=== PATIENT | male | born 1990 | race Two or more races ===

== ENCOUNTER 2017-06-09 19:05 | Emergency (ER) | payer SELFPAY ==
[2017-06-09 19:13] VITALS: BP 156/104; PULSE 82; TEMP 98.1; BMI 26.9
[2017-06-09] MEDS ORDERED: ACETAMINOPHEN 325 MG TABLET (FP) PO ONE (21:30)
--- NOTE | 2017-06-09 21:39 | PDOC ---
History of Present Illness - General History Source: Patient Exam Limitations: No Limitations - History of Present Illness Initial Comments: 06/09/17 21:41 The patient is a 26 year old male with no past medical history, presents to the emergency department with complaint of bump to the bottom of his left foot for 2 -3 months. Patient is unsure if he injured it or stepped on something. The bump is painful and has been increasing in pain over time. Patient has to ambulate on the other side of his foot to avoid pressure and pain. Denies pain or weakness radiating up the leg. Denies fever, chills. Patient reports polydipsia , polyuria. Denies change in temperature tolerance. Patient's mother has a history of Diabetes. <Andres Ann - Last Filed: 06/09/17 21:40> <Dipika Cain - Last Filed: 06/09/17 22:08> - General Chief Complaint: Injury Stated Complaint: BUMP ON LT FOOT Time Seen by Provider: 06/09/17 19:52 Past History <Andres Ann - Last Filed: 06/09/17 21:40> - Past Medical History COPD: No Other medical history: denies - Immunization History Immunization Up to Date: Yes - Suicide/Smoking/Psychosocial Hx Smoking History: Current every day smoker Number of Cigarettes Smoked Daily: 10 Information on smoking cessation initiated: No Hx Alcohol Use: No Drug/Substance Use Hx: No <Dipika Cain - Last Filed: 06/09/17 22:08> - Past Medical History Allergies/Adverse Reactions: Allergies Allergy/AdvReac Type Severity Reaction Status Date / Time No Known Allergies Allergy Verified 06/09/17 19:09 Home Medications: Ambulatory Orders Ibuprofen 800 mg PO TID #30 tablet 06/09/17 Review of Systems - Review of Systems Able to Perform ROS?: Yes Comments:: 06/09/17 21:41 CONSTITUTIONAL: Absent: fever, no chills, no fatigue EYES: Absent: visual changes ENT: Absent: ear pain, no sore throat CARDIOVASCULAR: Absent: chest pain, no palpitations RESPIRATORY: Absent: cough, no SOB GI: Absent: abdominal pain, no nausea, no vomiting, no constipation, no diarrhea GENITOURINARY: Absent: dysuria, no frequency, no hematuria MUSKULOSKELETAL: Absent: back pain, no arthralgia, no myalgia SKIN: Absent: rash NEURO: Absent: headache Is the patient limited Polish proficient: No <Andrse Ann - Last Filed: 06/09/17 21:40> *Physical Exam - Vital Signs Last Vital Signs Temp Pulse Resp BP Pulse Ox 98.1 F 82 18 156/104 99 06/09/17 19:09 06/09/17 19:09 06/09/17 19:09 06/09/17 19:09 06/09/17 19:09 - Physical Exam Comments: 06/09/17 21:41 GENERAL: Well-appearing, well-nourished. No apparent distress. HEENT: Normocephalic, atraumatic. PERRL, EOM intact. CARDIOVASCULAR: Normal S1, S2. Regular rate and rhythm. PULMONARY: Clear to auscultation bilaterally. ABDOMEN: Soft, non-distended, non-tender. EXTREMITIES: Left foot shows normal ROM. There is a healed ulcer in the plantar region of his left foot. Normal ROM in all other extremities. No gross deformities. SKIN: Warm, dry. No rash NEUROLOGICAL: No focal neurological deficits. <Andres Ann - Last Filed: 06/09/17 21:40> - Vital Signs Last Vital Signs Temp Pulse Resp BP Pulse Ox 98.1 F 82 18 156/104 99 06/09/17 19:09 06/09/17 19:09 06/09/17 19:09 06/09/17 19:09 06/09/17 19:09 <Dipika Cain - Last Filed: 06/09/17 22:08> ED Treatment Course - RADIOLOGY Radiology Studies Ordered: Category Date Time Status FOOT-LEFT [RAD] Stat Radiology 06/09/17 21:29 Ordered <Dipika Cain - Last Filed: 06/09/17 22:08> *DC/Admit/Observation/Transfer - Attestations Scribe Attestion: 06/09/17 21:41 Documentation prepared by Andres Ann, acting as infertility medical assistant for JEWELL Jackson <Andres Ann - Last Filed: 06/09/17 21:40> - Discharge Dispostion Admit: No <Dipika Cain - Last Filed: 06/09/17 22:08> Diagnosis at time of Disposition: Flat foot Qualifiers: Laterality: unspecified laterality Qualified Code(s): M21.40 - Flat foot [pes planus] (acquired), unspecified foot - Discharge Dispostion Disposition: HOME Condition at time of disposition: Stable - Referrals Referrals: Mitchell Ledezma MD [Staff Physician] - - Patient Instructions Printed Discharge Instructions: DI for Flat Feet Additional Instructions: You have a flat foot. The pain appears to be from old trauma to the arch of the foot. There are no broken bones or foreign bodies seen on exam. Please take ibuprofen 800mg three time a day to help with pain. Wear shoes with good arch support. Keep your foot elevated when resting. Please follow up with podietry ( Dr. Mcdowell) this week for further evaluation. Return to the ED if the pain gets worse, if you develop fevers, chills, signs of infection including redness or pus drainage from the site or have any changes in your symptoms. - Post Discharge Activity Forms/Work/School Notes: Back to Work
[2017-06-09] MEDS ORDERED: ACETAMINOPHEN 325 MG TABLET (FP) ONE (21:52)
== END 2017-06-09 22:13 | disposition home or self-care (01) ==
LOC: JERFT 19:05
DX: M21.40 Flat foot [pes planus] (acquired), unspecified foot (principal); F17.210 Nicotine dependence, cigarettes, uncomplicated
CPT/HCPCS: 73630-TC-LT; 99281-25